=== PATIENT | female | born 2005 | race Caucasian/White ===

== ENCOUNTER 2024-04-15 14:32 | Emergency (ER) | payer OTHER, SELFPAY ==
[2024-04-15 14:36] VITALS: BP 150/108
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
[2024-04-15] MEDS: ROCEPHIN 500 MG IM (19:43)
[2024-04-15] MEDS: FLAGYL 500 MG PO (19:43)
[2024-04-15] MEDS: VIBRAMYCIN 100 MG PO (19:44)
== END 2024-04-16 00:27 | disposition home or self-care (01) ==
LOC: EMR 14:32
PROVIDERS: EMERGENCY PHYSICIAN Student in an Organized Health Care Education/Training Program
DX: F30.2 Manic episode, severe with psychotic symptoms (principal); T76.21XA Adult sexual abuse, suspected, initial encounter
CPT/HCPCS: 99284; 96372

== ENCOUNTER 2024-05-02 11:50 | Emergency (ER) | payer BC, SELFPAY ==
[2024-05-02 12:00] VITALS: BP 113/76
--- NOTE | 2024-05-02 12:30 | ED.GENMED ---
History of Present Illness
<Rosanna Low PA-C - Last Filed: 05/02/24 17:45>
General
Chief Complaint: Abdominal Pain
Source: patient
Exam Limitations: none
Time Seen by Provider: 05/02/24 12:27
Nursing documentation reviewed up to this point in time: agreed with
History of Present Illness
History of Present Illness:
19-year-old female with a past medical history of bipolar disorder with gloria presenting to the emergency department today with concerns of abdominal pain, vomiting, and constipation. Patient present in room with father. Patient reports that the
symptoms started around a week ago. Patient states that prior to this time, she is to have a bowel movement once a day. But now she has not had a normal one for her in a week. Patient tried Ex-Lax last night with no relief. Patient said she had
2 episodes of vomiting yesterday. Patient states that she also has abdominal pain she rates this a 8 out of 10 and she feels it most in the middle lower abdomen. Patient also feels like she has had fevers and chills but has never taken her
temperature. Patient denies any burning with urination, any hematuria, any recent long distance travel. Of note, patient was recently hospitalized in inpatient psychiatric facility called [facility] and she was started on Zyprexa and lithium
around 10 days ago right before her symptoms started.
Review of Systems
<Rosanna Low PA-C - Last Filed: 05/02/24 17:45>
Review of Systems
All Other Systems: ROS reviewed and negative except as documented in HPI and ROS
Phy Exam
<Rosanna Low PA-C - Last Filed: 05/02/24 17:45>
Physical Exam
Physical Exam:
General: Patient is well appearing and in no acute distress; non-toxic
Skin: Warm and dry, no rashes or lesions
Head: Normocephalic, atraumatic
Eyes: Sclera non-icteric. EOMs intact. PERRLA.
Cardiac: Regular rate
Peripheral Vascular: No lower extremity swelling or edema.
Pulm: Normal respiratory effort
Abdomen: Tenderness palpation bilateral lower abdominal quadrants. No palpable masses. Guarding present, no rebound tenderness
Neuro: CN II-XII intact, no focal neurologic deficits.
Psychiatric: Appropriate mood and affect.
Course
<Rosanna Low PA-C - Last Filed: 05/02/24 17:45>
Orders/Labs/Results
Orders:
Orders
05/02/24 13:10
CT Abd/pelvis W Iv Cont Urgent
Comment:
Reason For Exam: lower midline abdominal pain
05/02/24 13:24
Complete Blood Count/With Diff Urgent
Comprehensive Metabolic Panel Urgent
HCG, Serum Qualitative Screen Urgent
Lipase Urgent
05/02/24 13:30
Test Result ONCE
05/02/24 13:39
Ondansetron Injectable [Zofran] 4 mg IV NOW STA
05/02/24 14:38
Add On- LAB Urgent
Tests Added?: hcg qualitative
05/02/24 15:18
Ketorolac [Toradol] 15 mg IV NOW STA
05/02/24 15:35
Enema- Treatment ONCE
Type: Soap Suds
Magnesium Citrate [Citroma] 300 ml PO ONCE ONE
Abnormal Lab Results
05/02/24
13:24
Hct 36.4 L %
(37.0-47.0)
Neutrophils % 75.6 H %
(42.2-75.2)
Lymphocytes % 16.6 L %
(20.5-51.1)
AST 51 H U/L
(14-36)
ALT 66 H U/L
(0-35)
05/02/24 13:24
05/02/24 13:24
Vital Signs
Initial and Last Documented VS:
Initial Vital Signs
Temp Pulse Resp BP Pulse Ox
98.3 F 93 16 113/76 98
05/02/24 12:00 05/02/24 12:00 05/02/24 12:00 05/02/24 12:00 05/02/24 12:00
Last Documented Vital Signs
Temp Pulse Resp BP Pulse Ox
98.3 F 74 18 101/64 98
05/02/24 12:00 05/02/24 14:51 05/02/24 14:51 05/02/24 15:00 05/02/24 15:00
<Don Qureshi, DO - Last Filed: 05/02/24 15:38>
Orders/Labs/Results
Orders:
Orders
05/02/24 13:10
CT Abd/pelvis W Iv Cont Urgent
Comment:
Reason For Exam: lower midline abdominal pain
05/02/24 13:24
Complete Blood Count/With Diff Urgent
Comprehensive Metabolic Panel Urgent
HCG, Serum Qualitative Screen Urgent
Lipase Urgent
05/02/24 13:30
Test Result ONCE
05/02/24 13:39
Ondansetron Injectable [Zofran] 4 mg IV NOW STA
05/02/24 14:38
Add On- LAB Urgent
Tests Added?: hcg qualitative
05/02/24 15:18
Ketorolac [Toradol] 15 mg IV NOW STA
05/02/24 15:35
Enema- Treatment ONCE
Type: Soap Suds
Magnesium Citrate [Citroma] 300 ml PO ONCE ONE
Abnormal Lab Results
05/02/24
13:24
Hct 36.4 L %
(37.0-47.0)
Neutrophils % 75.6 H %
(42.2-75.2)
Lymphocytes % 16.6 L %
(20.5-51.1)
AST 51 H U/L
(14-36)
ALT 66 H U/L
(0-35)
05/02/24 13:24
05/02/24 13:24
Vital Signs
Initial and Last Documented VS:
Initial Vital Signs
Temp Pulse Resp BP Pulse Ox
98.3 F 93 16 113/76 98
05/02/24 12:00 05/02/24 12:00 05/02/24 12:00 05/02/24 12:00 05/02/24 12:00
Last Documented Vital Signs
Temp Pulse Resp BP Pulse Ox
98.3 F 74 18 101/64 98
05/02/24 12:00 05/02/24 14:51 05/02/24 14:51 05/02/24 15:00 05/02/24 15:00
Dwaynelt;Rosanna Low PA-C - Last Filed: 05/02/24 17:45>
MDM/Problems Addressed
Differential Diagnosis Includes:
ddx include constipation, gastroenteritis, bowel obstruction
MDM/Problems Addressed:
Abdominal symptoms:
19-year-old female with a past medical history of bipolar disorder with gloria presenting to the emergency department today with concerns of abdominal pain, vomiting, and constipation. Patient present in room with father. Patient reports that the
symptoms started around a week ago. Patient states that prior to this time, she is to have a bowel movement once a day. But now she has not had a normal one for her in a week. On exam, patient is well-appearing but she does have a lot of
tenderness palpation on exam and rates her pain 11 out of 10. Also had vomiting associated with this. Considering this, CT of the abdomen was obtained which was negative for any acute intra-abdominal pathology but did show significant
constipation. Patient was treated here with an enema which did improve her symptoms. Patient did start her new psychiatric medications recently which may be responsible for her constipation. Patient has a follow-up appoint with her psychiatrist
tomorrow. Patient was given prescription for magnesium citrate. Patient stable for discharge.
Chronic conditions affecting care:
bipolar disorder
Acute Exacerbation and/or Progression of Chronic Illness:
n/a
<Rosanna Low PA-C - Last Filed: 05/02/24 17:45>
*Pulse Oximetry
Patient hypoxic: no
*Critical Care Note
Total Time (30-74mins, 75-104mins- exclusive of procedures): Not Applicable
Data Reviewed
Review of Other/Old Records Reveals: Radiology Studies (No previous ER physician documentation to review) and Discharge Summary (No discharge summaries in [facility] to review)
Source: patient and records
<Rosanna Low PA-C - Last Filed: 05/02/24 17:45>
Patient Management
Escalation/DeEscalation of care consider admission/obs:
Case reviewed with my attending Dr. Qureshi, patient stable for discharge.
<Rosanna Low PA-C - Last Filed: 05/02/24 17:45>
Update Note
Update Note:
3:58 pm-- On reassessment, patient states that her pain decreased from an 11/10 to an 8/10.
5:11 pm-- Evaluated patient after enema, patient states that she was able to have a better bowel movement, pain improved
ED Attending Note
<Rosanna Low PA-C - Last Filed: 05/02/24 17:45>
-
Portions of this chart may have been created with voice recognition software.� Occasional wrong word or��sound alike� substitutions may have occurred due to the inherent limitations of voice recognition software.
<Don Qureshi, DO - Last Filed: 05/02/24 15:38>
ED Attending Note
Patient seen and examined by attending physician: Yes
I performed the substantive portion of visit, reviewed & personally made and approve the management plan that is documented in note by myself or IGOR.: Yes
ED Attending Note:
I have seen and evaluated the patient with a [id number] encounter. I have spoken to the advance practicer provider and involved in the medical history, the physical exam, medical decision making.
Evaluation and management service: agree unless noted differently below.
Results interpretation: agree unless noted differently below.
Focused HPI: 19-year-old female present with constipation. This has worsened over the past week or so. She has had decreased appetite due to the pain
Physical exam: Mild abdominal tenderness. No rebound
Medical Decision Making: Obtain CT given history. Patient is interested in getting enema at bedside. Will order soap suds enema
Discharge Plan
Departure
Patient Disposition: Home (Routine Discharge)
Date of Disposition: 05/02/24
Time of Disposition: 16:46
Patient with high blood pressure during this ER visit?: Yes
Condition: Good
Discharge Problem:
Constipation
Instructions: Magnesium Citrate, High-fiber diet
Prescriptions:
No Action
metronidazole 500 mg tablet
500 mg PO BID 7 Days Qty: 14 0RF
doxycycline hyclate 100 mg tablet
100 mg PO BID 7 Days Qty: 14 0RF
Referrals:
Kiara Álvarez CRNP [Family Provider] -
Activity Restrictions/Additional Instructions:
You can take the magnesium citrate as needed.
Please stay well-hydrated.
Please follow-up with your primary care provider and your psychiatrist.
Return emergency department should you develop persistent diarrhea, intractable vomiting, muscle pain or spasms, confusion, chest pain, shortness of breath.
Interventions
Interventions:
*Risk Screen - Suicide Last Done: 05/02/24 13:46
*General Assessment Last Done: 05/02/24 13:46
*Neglect/Abuse Screening Last Done: 05/02/24 13:46
ED- Fall Risk Assessment Last Done: 05/02/24 14:17
*ED COVID-19 Vaccine History Last Done: 05/02/24 13:46
AU-Suunte-Nioininqwm Assessment Last Done: 05/02/24 14:48
Discharge Date and Time
Discharge Date/Time: 05/02/24 17:31
Print Language: CAMEROONIAN
[2024-05-02 13:42] LABS: % Basophils 0.3 % (0-2); % Eosinophils 0.8 % (0-6); % Immature Granulocytes 0.4 % (0-0.5); % Lymphocytes 16.6 % (20.5-51.1); % Monocytes 6.3 % (1.7-9.3); % Neutrophils 75.6 % (42.2-75.2); Absolute Eosinophils 0.1 10^3/uL (0-0.7); Absolute Lymphocytes 1.2 10^3/uL (1.2-3.4); Absolute Monocytes 0.5 10^3/uL (0.1-0.6); Absolute Neutrophils 5.5 10^3/uL (1.4-6.5); Hematocrit 36.4 % (37.0-47.0); Hemoglobin 12.3 g/dL (12.0-16.0); Mean Corp Hgb Conc. 33.8 g/dL (33.0-37.0); Mean Corpuscular Hgb 29.1 pg (27.0-31.0); Mean Corpuscular Volume 86.1 fL (81.0-99.0); Mean Platelet Volume 9.4 fL (7.4-10.4); Nucleated Red Blood Cells % 0 %; Platelet Count 238 10^3/uL (130-400); Red Blood Cell Count 4.23 10^6/uL (4.20-5.40); Red Cell Dist. Width 13.2 % (11.5-14.5); White Blood Cell Count 7.3 10^3/uL (4.8-10.8)
[2024-05-02 13:46] VITALS: BMI 19.7
[2024-05-02 13:50] LABS: ALT (SGPT) 66 U/L (0-35); AST (SGOT) 51 U/L (14-36); Albumin 3.9 g/dl (3.5-5.0); Alkaline Phosphatase 56 U/L (38-126); Blood Urea Nitrogen 11 mg/dl (7-17); Calcium 9.4 mg/dl (8.4-10.2); Carbon Dioxide 29 mmol/L (22-30); Chloride 102 mmol/L (98-107); Estimated Creatinine Clearance > 125 ml/min; Glucose 99 mg/dl (70-99); Lipase 75 U/L (23-300); Potassium 4.4 mmol/L (3.5-5.1); Sodium 136 mmol/L (135-145); Total Bilirubin 0.2 mg/dl (0.2-1.3); Total Protein 6.6 g/dl (6.3-8.2); eGFR > 60.00
[2024-05-02] MEDS: ZOFRAN 4 MG IV (13:58)
[2024-05-02 14:15] LABS: HCG, Serum Qualitative Screen Negative
[2024-05-02 14:47] VITALS: BP 96/68
[2024-05-02 14:51] VITALS: BP 96/68
[2024-05-02 15:00] VITALS: BP 101/64
[2024-05-02] MEDS: TORADOL 15 MG IV (15:35)
[2024-05-02] MEDS: CITROMA 300 ML PO (15:39)
== END 2024-05-02 17:31 | disposition home or self-care (01) ==
LOC: EMR 11:50
PROVIDERS: Physician Assistant; EMERGENCY PHYSICIAN Student in an Organized Health Care Education/Training Program; FAMILY PHYSICIAN Nurse Practitioner Family
DX: K59.00 Constipation, unspecified (principal); R03.0 Elevated blood-pressure reading, without diagnosis of hypertension; F31.9 Bipolar disorder, unspecified
CPT/HCPCS: 99285; 96374; 96375; 74177; 80053; 83690; 84703; 85025; Q9967